=== PATIENT | female | born 1975 | race Caucasian/White ===

== ENCOUNTER 2019-04-08 08:40 | Emergency (ER) | payer OTHER ==
[~2019-04-08] VITALS: Ht 152.4 cm; Wt 61.4 kg
[~2019-04-08 08:40] MED LIST: DOXY100T20 PO; METR500T PO; NAPR-985 PO; NITR-58 PO
[2019-04-08 08:41] VITALS: BP 146/83; PULSE 81; RESP 17; Ht 152.4 cm; Wt 61.4 kg
[2019-04-08] MEDS ORDERED: KETOROLAC 30 MG INJ IM STA (09:45)
== END 2019-04-08 10:40 | disposition home or self-care (01) ==
LOC: FTE 08:40
DX: M54.5 Low back pain (principal)
CPT/HCPCS: 81025; 96372; J1885; Z7502